=== PATIENT | male | born 1940 | race Caucasian/White ===

== ENCOUNTER 2017-03-22 16:19 | Emergency (ER) | payer OTHER ==
[2017-03-22 16:25] VITALS: O2SAT 97
--- NOTE | 2017-03-22 16:35 | EDPHY ---
H & P Stated Complaint: Chainsaw cut to L 5th finger HPI/ROS: HPI CHIEF COMPLAINT: ChainSaw accident left hand laceration HISTORY OF PRESENT ILLNESS: This patient very pleasant 76-year-old male who presents emergency room with a laceration to the 5th digit, left hand, lateral aspect from a chainsaw. Patient states he was cutting wood. And somehow lacerated his left 5th digit. Patient tells me he is unsure exactly about his tetanus. He denies any significant pain. Upon arrival to the emergency room is neurovascular intact. No significant bleeding. Past Medical History: Denies significant medical history Past Surgical History: Denies significant surgical history Social History: Denies daily use of drugs alcohol tobacco products. Family History: Noncontributory. ROS REVIEW OF SYSTEMS: A comprehensive 10 point review of systems is otherwise negative aside from elements mentioned in the history of present illness. Exam Constitutional triage nursing summary reviewed, vital signs reviewed, awake/ alert. Eyes normal conjunctivae and sclera, EOMI, PERRLA. HENT normal inspection, atraumatic, moist mucus membranes, no epistaxis, neck supple/ no meningismus, no raccoon eyes. Respiratory clear to auscultation bilaterally, normal breath sounds, no respiratory distress, no wheezing. Cardiovascular rate normal, regular rhythm, no murmur, no edema, distal pulses normal. Gastrointestinal soft, non-tender, no rebound, no guarding, normal bowel sounds, no distension, no pulsatile mass. Genitourinary no CVA tenderness. Musculoskeletal no midline vertebral tenderness, full range of motion, no calf swelling, no tenderness of extremities, no meningismus, good pulses, neurovascularly intact. Skin left hand: Lateral aspect, base of left 5th digit 4 cm horizontally oriented laceration, no tendon involvement, no arterial vomit, no bony involvement, additionally distal aspect of the left 5th digit there is a macerated laceration. 2 cm in horizontal length. Again no arterial injury. No tendon injury. No bony vomit. Neurovascular intact good cap refill. Full range of motion. Neurologic awake, alert and oriented x 3, AAOx3, moves all 4 extremities equally, motor intact, sensory intact, CN II-XII intact, normal cerebellar, normal vision, normal speech. Psychiatric normal mood/affect. Heme/Lymph/Immune no lymphadenopathy. Differential Diagnosis: Includes but is not limited to in a particular order, laceration left hand. Need for wound care, need for suturing. Medical Decision Making: Plan for this patient x-ray left hand, rule out foreign bodies or bony involvement, washout wounds copiously with sterile fluid. Irrigate wounds copiously. And then suture closure. Tetanus will be updated. 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 Re-evaluation: 1746: Source: Patient - Personal History Current Tetanus Diphtheria and Acellular Pertussis (TDAP): Yes - Medical/Surgical History Hx Alcoholism: Yes Other PMH: HTN. cholesterol - Social History Smoking Status: Former smoker Constitutional: Initial Vital Signs Temperature (C) 36.8 C 03/22/17 16:22 Heart Rate 88 03/22/17 16:22 Respiratory Rate 18 03/22/17 16:22 Blood Pressure 122/87 H 03/22/17 16:22 O2 Sat (%) 97 03/22/17 16:22 O2 Delivery Mode Room Air Allergies/Adverse Reactions: No Known Allergies Allergy (Unverified 03/22/17 16:21) Home Medications: Medication Instructions Recorded Bp Med 03/22/17 Cephalexin [Keflex] 500 mg PO Q6H #28 cap 03/22/17 Cholesterol Med 03/22/17 Medical Decision Making - Diagnostics Imaging Results: Imaging Impressions Hand X-Ray 03/22/17 16:40 Impression: Negative. No acute fracture or foreign body. - Data Points Medications Given: Discontinued Medications Diphtheria/Tetanus/Acell Pertussis (Boostrix) 0.5 ml IM .ONCE ONE Stop: 03/22/17 16:46 Last Admin: 03/22/17 16:58 Dose: 0.5 ml Departure - Departure Disposition: Home, Routine, Self-Care Clinical Impression: Accidental laceration Condition: Good Instructions: Care For Your Stitches (ED), Laceration (ED) Additional Instructions: 1.Keep her hand clean dry intact and protected. 2. Sutures need to be removed in 12-14 days. 3. Watch for signs of infection this includes redness, drainage, swelling, pain , pus. 4. Take antibiotics as prescribed. Referrals: ASHANTI HALE [Primary Care Provider] - As per Instructions Prescriptions: Cephalexin [Keflex] 500 mg PO Q6H #28 cap
[2017-03-22] MEDS ORDERED: TDAP ADULT 0.5 ML INJ (BOOSTRIX) IM ONE (16:45)
--- NOTE | 2017-03-22 17:37 | EDPHY ---
ED Progress Note Narrative: Procedure: Finger Laceration repair. Verbal consent was obtained from the patient. The complex, multiple, superficial laceration on the left fifth digit was anesthetized in the usual fashion by Dr. Mahoney. The wound was irrigated, draped and explored to its base with a gloved finger. There were no deep structures involved. No tendon injury was identified. The wound was repaired with # 9, 6-0 Prolene simple interrupted pattern, inferior to the MCP joint, jagged laceration with v-shaped edges; #4, 6-0 Prolene, simple interrupted pattern, between the PIP and DIP joints and # 6, 6-0 Prolene, simple interrupted pattern nearest the tip of digit. Good hemostasis was achieved patient tolerated procedure well. The procedure was performed by myself.
[2017-03-22] MEDS ORDERED: CEPHALEXIN 500MG PREPACK#4 BTL TAKEHOME ONE (17:46)
[2017-03-22] MEDS ORDERED: CEPHALEXIN 500 MG CAP PO ONE (17:46)
[2017-03-22 18:13] VITALS: BP 125/80; PULSE 84; RESP 16; TEMP 98.1
== END 2017-03-22 18:13 | disposition home or self-care (01) ==
PROC: 0HQGXZZ Repair Left Hand Skin, External Approach (ICD-10-PCS; principal; 2017-03-22)
DX: S61.412A Laceration without foreign body of left hand, initial encounter (principal); I10 Essential (primary) hypertension; Z23 Encounter for immunization; Z87.891 Personal history of nicotine dependence; W29.3XXA Contact with powered garden and outdoor hand tools and machinery, initial encounter; Y99.8 Other external cause status; Y93.89 Activity, other specified